=== PATIENT | male | born 1995 | race African-American/Black ===

== ENCOUNTER 2016-11-14 20:34 | Emergency (ER) | payer SELFPAY ==
--- NOTE | 2016-11-14 20:59 | ER Document Report ---
ED Medical Screen (RME) - General Stated Complaint: SKIN PROBLEM Notes: patient c/o bumps aroudn nose piercing and on his face that started today. denies pain, burning, itching I have greeted and performed a rapid initial assessment of this patient. A comprehensive ED assessment and evaluation of the patient, analysis of test results and completion of the medical decision making process will be conducted by additional ED providers. TRAVEL OUTSIDE OF THE [place] IN LAST 30 DAYS: No - Related Data Allergies/Adverse Reactions: No Known Allergies Allergy (Verified 11/14/16 20:57) Past Medical History - Immunizations Immunizations up to date: Yes Hx Diphtheria, Pertussis, Tetanus Vaccination: Yes
[2016-11-14 21:01] VITALS: BP 128/67
--- NOTE | 2016-11-14 22:33 | ER Document Report ---
HPI - HPI Patient complains to provider of: skin problem Pain Level: 0 Context: Patient is a 21-year-old male that comes emergency department for chief complaint of acne infection over his forehead and also an area that looks strange at the site of his nasal piercing. He has had the piercing in place for months. Asked patient admits that he did have an injury to the area where he caught his glasses on the piercing a couple of days ago. Patient denies fever, drainage from the area, pain to the area, patient denies any daily medications or medical problems. - DERM Skin Color: Normal Past Medical History - General Information source: Patient - Social History Smoking Status: Never Smoker Drug Abuse: None Lives with: Family Family History: Reviewed & Not Pertinent Patient has suicidal ideation: No Patient has homicidal ideation: No - Medical History Medical History: Negative Renal/ Medical History: Denies: Hx Peritoneal Dialysis Surgical Hx: Negative - Immunizations Immunizations up to date: Yes Hx Diphtheria, Pertussis, Tetanus Vaccination: Yes Vertical Provider Document - CONSTITUTIONAL General Appearance: WD/WN, No Apparent Distress - INFECTION CONTROL TRAVEL OUTSIDE OF THE [place] IN LAST 30 DAYS: No - HEENT HEENT: negative: Normal ENT Exam - Right outer aspect of the nare has a ring hole and very slight soft tissue swelling at the base. No erythema, abnormal heat, tenderness, or pus drainage., Pharyngeal Exudate, Pharyngeal Tenderness, Pharyngeal Erythema, Tympanic Membrane Red, Tympanic Membrane Bulging - NECK Neck: Normal Inspection - RESPIRATORY Respiratory: Breath Sounds Normal, No Respiratory Distress O2 Sat by Pulse Oximetry: 97 - CARDIOVASCULAR Cardiovascular: Regular Rate, Regular Rhythm - GI/ABDOMEN Gastrointestinal: Abdomen Soft, Abdomen Non-Tender - BACK Back: Normal Inspection - MUSCULOSKELETAL/EXTREMETIES Musculoskeletal/Extremeties: MAEW, FROM, Non-Tender - NEURO Level of Consciousness: Awake, Alert, Appropriate Motor/Sensory: No Motor Deficit, No Sensory Deficit - DERM Integumentary: negative: Rash - Papules with white over the forehead worse on the left side Course - Re-evaluation Re-evalutation: Patient did take on the ring for me, no pus or other abnormality seen, no erythema, very tiny amount of soft tissue swelling suggesting an injury, after I noted this patient admitted that he had caught his glasses on the ring and injured the area. Recommended patient remove the ring permanently to allow the area to heal, patient unwilling to do this. Patient requesting medication for the acne, patient does have a significant amount of acne over his face/forehead with whiteheads but no induration, fluctuance, or evidence of abscess. - Vital Signs Vital signs: Temp Pulse Resp BP Pulse Ox 98 F 79 15 128/67 H 97 11/14/16 20:57 11/14/16 20:57 11/14/16 20:57 11/14/16 20:57 11/14/16 20:57 Discharge - Discharge Clinical Impression: Acne vulgaris, Soft tissue injury Condition: Stable Disposition: HOME, SELF-CARE Additional Instructions: There appears to be a small amount of soft tissue swelling and injury side piercing, there is no evidence of infection, this should resolve/heal with time. Consider removing the piercing as this heals, however you would likely lose the pierced area. Take the doxycycline antibiotic for the acne outbreak, afterwards continue the new cream. Follow up with Primary care. Return to emergency department for any concerning symptoms. Prescriptions: Doxycycline Hyclate 100 mg PO BID #14 capsule
== END 2016-11-14 22:57 | disposition home or self-care (01) ==
LOC: ER 20:34
DX: S00.30XA Unspecified superficial injury of nose, initial encounter (principal); L70.0 Acne vulgaris; X58.XXXA Exposure to other specified factors, initial encounter
CPT/HCPCS: 99282

== ENCOUNTER 2016-12-19 13:28 | Emergency (ER) | payer SELFPAY ==
[2016-12-19 13:35] VITALS: BP 127/64
--- NOTE | 2016-12-19 14:17 | ER Document Report ---
ED Medical Screen (RME) - General Stated Complaint: HEADACHE Time seen by provider: 14:14 Mode of Arrival: Ambulatory Information source: Patient Notes: 21-year-old male presents to ED with right blister to the top inside lip for about a week and bottom inside lip started today, headache started this morning Became worse when he came to the ER, pain to the back of his neck when he moves his head that started yesterday. Denies fevers. Is eating Cheetos in the RME. I have greeted and performed a rapid initial assessment of this patient. A comprehensive ED assessment and evaluation of the patient, analysis of test results and completion of medical decision making process will be conducted by an additional ED providers. TRAVEL OUTSIDE OF THE [place] IN LAST 30 DAYS: No - Related Data Allergies/Adverse Reactions: No Known Allergies Allergy (Verified 12/19/16 14:13) Past Medical History Renal/ Medical History: Denies: Hx Peritoneal Dialysis - Immunizations Immunizations up to date: Yes Hx Diphtheria, Pertussis, Tetanus Vaccination: Yes Physical Exam - Vital signs Vitals: Temp Pulse Resp BP Pulse Ox 99.9 F 103 H 16 127/64 H 97 12/19/16 13:34 12/19/16 13:34 12/19/16 13:34 12/19/16 13:34 12/19/16 13:34 Course - Vital Signs Vital signs: Temp Pulse Resp BP Pulse Ox 99.9 F 103 H 16 127/64 H 97 12/19/16 13:34 12/19/16 13:34 12/19/16 13:34 12/19/16 13:34 12/19/16 13:34
[2016-12-19] MEDS ORDERED: LIDOCAINE 2% VISCOUS SOLN 20 ML UDCUP PO ONE (14:53)
[2016-12-19] MEDS ORDERED: IBUPROFEN 800 MG TABLET PO ONE (14:54)
[2016-12-19] MEDS ORDERED: ACYCLOVIR 200 MG CAPSULE PO ONE (14:58)
--- NOTE | 2016-12-19 15:04 | ER Document Report ---
HPI - HPI Patient complains to provider of: mouth sores Onset: Last week Onset/Duration: Gradual Quality of pain: Achy Pain Level: 3 Context: Patient complains of tender mouth ulceration that started about a week ago. Patient complains of generalized body aches and neck discomfort. Patient denies any fever. Patient does complain of mild headache. Patient denies any previous history of oral herpes. Associated Symptoms: Body/muscle aches, Headache, Other - Mouth sores. denies: Fever Exacerbated by: Denies Relieved by: Denies Similar symptoms previously: No Recently seen / treated by doctor: No - ROS ROS below otherwise negative: Yes Systems Reviewed and Negative: Yes All other systems reviewed and negative - CONSTITUTIONAL Constitutional: DENIES: Fever - EENT EENT: DENIES: Sore Throat Notes: Mouth ulceration - NEURO Neurology: REPORTS: Headache - RESPIRATORY Respiratory: DENIES: Trouble Breathing, Coughing - GASTROINTESTINAL Gastrointestinal: DENIES: Nausea, Patient vomiting, Diarrhea - MUSCULOSKELETAL Musculoskeletal: REPORTS: Neck Pain - Anterior lateral neck discomfort. DENIES : Extremity pain, Back Pain, Swelling - DERM Skin Color: Normal Skin Problems: Rash - Inside mouth Past Medical History - General Information source: Patient - Social History Smoking Status: Never Smoker Chew tobacco use (# tins/day): No Frequency of alcohol use: None Drug Abuse: None Family History: Reviewed & Not Pertinent Patient has suicidal ideation: No Patient has homicidal ideation: No - Medical History Medical History: Negative Renal/ Medical History: Denies: Hx Peritoneal Dialysis Past Surgical History: Reports: Hx Myringotomy - Immunizations Immunizations up to date: Yes Hx Diphtheria, Pertussis, Tetanus Vaccination: Yes Vertical Provider Document - CONSTITUTIONAL Agree With Documented VS: Yes Exam Limitations: No Limitations General Appearance: WD/WN, No Apparent Distress - INFECTION CONTROL TRAVEL OUTSIDE OF THE [place] IN LAST 30 DAYS: No - HEENT HEENT: Atraumatic, Normocephalic. negative: Normal ENT Exam, Pharyngeal Exudate , Pharyngeal Tenderness Mouth Diagram: 1 - Tender ulceration to lower lip, not visible with mouth closed 2 - Tender shallow ulceration to right upper buccal mucosa - NECK Neck: Normal Inspection, Supple. negative: Lymphadenopathy-Left, Lymphadenopathy-Right - RESPIRATORY Respiratory: Breath Sounds Normal, No Respiratory Distress O2 Sat by Pulse Oximetry: 97 - CARDIOVASCULAR Cardiovascular: Regular Rate, Regular Rhythm, No Murmur - BACK Back: Normal Inspection - MUSCULOSKELETAL/EXTREMETIES Musculoskeletal/Extremeties: MAEW - NEURO Level of Consciousness: Awake, Alert, Appropriate Motor/Sensory: No Motor Deficit - DERM Integumentary: Warm, Dry, Rash - Tender ulceration to the buccal mucosa of mouth Course - Vital Signs Vital signs: Temp Pulse Resp BP Pulse Ox 99.9 F 103 H 16 127/64 H 97 12/19/16 13:34 12/19/16 13:34 12/19/16 13:34 12/19/16 13:34 12/19/16 13:34 Discharge - Discharge Clinical Impression: Ulceration, oral mucosa Condition: Stable Disposition: HOME, SELF-CARE Instructions: Acyclovir ([facility]), Ibuprofen (General) ([facility]), Mouth Sores ([facility]) Additional Instructions: Return immediately for any new or worsening symptoms Followup with your primary care provider, call tomorrow to make a followup appointment You may use [id number] topical analgesic medications to treat your symptoms. Prescriptions: Acyclovir [Zovirax 200 mg Capsule] 400 mg PO Q4H #70 capsule Ibuprofen [Motrin 800 mg Tablet] 800 mg PO Q8H PRN #20 tab PRN Reason: Nystatin/Dexameth/Diphen [Magic Mouthwash ([facility] Formula) Susp] 5 ml PO QID PRN # 120 ml PRN Reason: Referrals: [facility] [Provider Group] - Follow up as needed [facility] [Provider Group] - Follow up as needed
== END 2016-12-19 15:20 | disposition home or self-care (01) ==
LOC: ER 13:28
DX: K12.1 Other forms of stomatitis (principal); K13.70 Unspecified lesions of oral mucosa; R52 Pain, unspecified; M54.2 Cervicalgia
CPT/HCPCS: 99283; J3490

== ENCOUNTER 2017-08-27 14:26 | Emergency (ER) | payer SELFPAY ==
--- NOTE | 2017-08-27 15:22 | ER Document Report ---
HPI - HPI Patient complains to provider of: sinus congestion Pain Level: 3 Context: Patient is a 22-year-old male who presents emergency department complaining of bilateral sinus congestion without fever, purulent drainage for approximately 2- 3 weeks. Patient states that he has been taking NyQuil at night only which helped him sleep. He also states he is taking Claritin-D twice with some improvement in his symptoms. Otherwise he denies any sore throat, ear pain, difficulty breathing, difficulty swallowing, chest pain, cough, nausea or vomiting, body aches. - CONSTITUTIONAL Constitutional: DENIES: Fever, Chills - EENT EENT: DENIES: Sore Throat, Ear Pain, Eye problems - NEURO Neurology: REPORTS: Headache. DENIES: Weakness, Vision blurred, Dizzinesss / Vertigo - CARDIOVASCULAR Cardiovascular: DENIES: Chest pain - RESPIRATORY Respiratory: DENIES: Trouble Breathing, Coughing - GASTROINTESTINAL Gastrointestinal: DENIES: Abdominal Pain, Black / Bloody Stools - URINARY Urinary: DENIES: Dysuria, Urgency, Frequency - MUSCULOSKELETAL Musculoskeletal: DENIES: Extremity pain Past Medical History - Social History Smoking Status: Never Smoker Chew tobacco use (# tins/day): No Frequency of alcohol use: Occasional Drug Abuse: None Family History: Reviewed & Not Pertinent Patient has suicidal ideation: No Patient has homicidal ideation: No Renal/ Medical History: Denies: Hx Peritoneal Dialysis Past Surgical History: Reports: Hx Myringotomy - Immunizations Immunizations up to date: Yes Hx Diphtheria, Pertussis, Tetanus Vaccination: Yes Vertical Provider Document - CONSTITUTIONAL Agree With Documented VS: Yes Notes: PHYSICAL EXAM GENERAL: Alert, interacts well. HEENT: NCAT, pale conjunctiva, extraocular movements intact, pupils PERRL. external ear normal, no evidence of external auditory canal tenderness, blood/ drainage, cerumen impaction, TM intact without evidence of effusion, bulging, injection, MMM NECK: Full range of motion. Supple. Trachea midline. LUNGS: Clear to auscultation bilaterally, no wheezes, rales, or rhonchi. No respiratory distress. HEART: Regular rate and rhythm. No murmurs, gallops, or rubs. EXTREMITIES: Moves all 4 extremities spontaneously. No edema, radial and dorsalis pedis pulses 2/4 bilaterally. No cyanosis. NEUROLOGICAL: Alert and oriented x4. Normal speech. PSYCH: Normal affect, normal mood. SKIN: Warm, dry, normal turgor. No rashes or lesions noted. - INFECTION CONTROL TRAVEL OUTSIDE OF THE [place] IN LAST 30 DAYS: No - RESPIRATORY O2 Sat by Pulse Oximetry: 96 Course - Re-evaluation Re-evalutation: 08/27/17 15:20 Patient is a 22-year-old male who presents emergency department with symptoms consistent with allergic rhinitis. No evidence of fever, purulent drainage, sinus tenderness concerning for sinusitis. Patient is otherwise hemodynamically stable in no acute distress and afebrile. Will discharge patient home on steroid pack and to continue taking Claritin-D and to follow-up with primary care. Patient agrees with plan and stable for discharge home - Vital Signs Vital signs: Temp Pulse Resp BP Pulse Ox 97.4 F 80 16 111/67 96 08/27/17 14:29 08/27/17 14:29 08/27/17 14:29 08/27/17 14:29 08/27/17 14:29 Discharge - Discharge Clinical Impression: Allergic rhinitis Qualifiers: Chronicity: unspecified Allergic rhinitis trigger: unspecified Allergic rhinitis seasonality: unspecified seasonality Qualified Code(s): J30.9 - Allergic rhinitis, unspecified Condition: Good Disposition: HOME, SELF-CARE Instructions: Use of Diphenhydramine, Hay Fever ([facility]), Headache ([facility]), Nasal Corticosteroid Inhaler ([facility]), OTC Antihistamines ([facility]) Additional Instructions: Continue taking Claritin-D once a day. You can also take as needed pseudoephedrine as a decongestant. Prescriptions: Methylprednisolone [Medrol Dosepack (4 mg/Tab) 21 Tab/Dosepak] 4 mg PO ASDIR PRN #21 tab.ds.pk PRN Reason:
[2017-08-27] MEDS ORDERED: IBUPROFEN 800 MG TABLET PO ONE (15:23)
[2017-08-27] MEDS ORDERED: PSEUDOEPHEDRINE HCL 30 MG TABLET PO ONE (15:23)
[2017-08-27 15:56] VITALS: BP 109/66
== END 2017-08-27 16:05 | disposition home or self-care (01) ==
LOC: ER 14:26
DX: J30.9 Allergic rhinitis, unspecified (principal)
CPT/HCPCS: 99283

== ENCOUNTER 2018-05-20 22:45 | Emergency (ER) | payer SELFPAY ==
--- NOTE | 2018-05-21 00:36 | ER Document Report ---
ED General - General Chief Complaint: Skin Problem Stated Complaint: RASH ON CHEST Time Seen by Provider: 05/21/18 00:25 Notes: Patient is a 22-year-old male presents with complaint of a rash that he has had for several months. He says that he is hooked up he thinks it is) migraines. It is always along his inferior pectoral line as well as over his upper neck. Denies any fevers. No systemic symptoms. No abdominal pain. No chest pain. No shortness of breath. No history of diabetes. No vomiting or diarrhea. No other complaints at this time. TRAVEL OUTSIDE OF THE [place] IN LAST 30 DAYS: No - Related Data Allergies/Adverse Reactions: No Known Allergies Allergy (Verified 12/19/16 14:13) Past Medical History - Social History Smoking Status: Never Smoker Frequency of alcohol use: None Drug Abuse: None Family History: Reviewed & Not Pertinent Renal/ Medical History: Denies: Hx Peritoneal Dialysis Past Surgical History: Reports: Hx Myringotomy - Immunizations Immunizations up to date: Yes Hx Diphtheria, Pertussis, Tetanus Vaccination: Yes Review of Systems - Review of Systems Notes: My Normal Review Basic REVIEW OF SYSTEMS: CONSTITUTIONAL : Denies fever, chills, or sweats. Denies recent illness. EENT: Denies eye, ear, throat, or mouth pain or symptoms. Denies nasal or sinus congestion. RESPIRATORY: Denies cough, cold, or chest congestion. Denies shortness of breath, difficulty breathing, or wheezing. GASTROINTESTINAL: Denies abdominal pain. Denies nausea, vomiting, or diarrhea. Denies constipation. Last BM: MUSCULOSKELETAL: Denies neck or back pain or joint pain or swelling. SKIN: Rash NEUROLOGICAL: Denies altered mental status or loss of consciousness. Denies headache. Denies weakness or paralysis or loss of use of either side. Denies problems with gait or speech. Denies sensory or motor loss. ALL OTHER SYSTEMS REVIEWED AND NEGATIVE. Physical Exam - Vital signs Vitals: Temp Pulse BP Pulse Ox 98.2 F 92 126/72 H 98 05/20/18 22:52 05/20/18 22:52 05/20/18 22:52 05/20/18 22:52 - Notes Notes: General Appearance: Well nourished, alert, cooperative, no acute distress, no obvious discomfort. Appearing. Vitals: reviewed, See vital signs table. Eyes: PERRL, EOMI, Conjuctiva clear Neck: Supple, no neck tenderness, Lungs: No wheezing, No rales, No rhonci, No accessory muscle use, good air exchange bilaterally. Heart: Normal rate, Regular rythm, No murmur, no rub Extremities: no edema. Patient spontaneously moving all extremities without any pain. Skin: increased darker skin pigmentation along the inferior border of the pectoralis muscles as well as over the back of his neck. It is consistent with what appears to be acanthosis nigricans. Neuro: speech clear, oriented x 3, normal affect, responds appropriately to questions. Course - Re-evaluation Re-evalutation: 05/21/18 05:01 Patient's rashes look consistent with acanthosis nigricans. Encourage him to lose weight this is sometimes helps with the rash. On talked about diet options and exercise. Encouraged him to return to the ER for spreading of the rash, fevers, or feels unwell. Patient's blood sugar is normal this is even after he just ate approximately 3-4 hours ago. Dictation of this chart was performed using voice recognition software; therefore, there may be some unintended grammatical errors. - Vital Signs Vital signs: Temp Pulse Resp BP Pulse Ox 97.9 F 89 16 122/59 L 100 05/21/18 01:26 05/21/18 01:26 05/21/18 01:26 05/21/18 01:26 05/21/18 01:26 Discharge - Discharge Clinical Impression: Rash Condition: Good Disposition: HOME, SELF-CARE Additional Instructions: I suspect your rash is Acanthosis Nigrans. This usually improves with weight loss. Please follow up with a terra cotta mold maker if the rash is not improving despite weight loss. please return to the ER immediately if you develop fevers, vomiting, abdominal pain, or worsening of the rash.
[2018-05-21 01:47] VITALS: BP 122/59
== END 2018-05-21 01:30 | disposition home or self-care (01) ==
LOC: ER 22:45
DX: R21 Rash and other nonspecific skin eruption (principal)
CPT/HCPCS: 82962; 99283

== ENCOUNTER 2020-03-02 10:42 | Emergency (ER) | payer SELFPAY ==
--- NOTE | 2020-03-02 13:26 | RADIOLOGY REPORT (SQ) ---
EXAM DESCRIPTION: CHEST SINGLE VIEW IMAGES COMPLETED DATE/TIME: 03/02/2020 1:01 pm REASON FOR STUDY: loss of smell, loss of taste, high risk covid COMPARISON: None. EXAM PARAMETERS: NUMBER OF VIEWS: One view. TECHNIQUE: Single frontal radiographic view of the chest acquired. RADIATION DOSE: NA LIMITATIONS: None. FINDINGS: LUNGS AND PLEURA: No opacities, masses or pneumothorax. No pleural effusion. MEDIASTINUM AND HILAR STRUCTURES: No masses. Contour normal. HEART AND VASCULAR STRUCTURES: Heart normal in size. Normal vasculature. BONES: No acute findings. HARDWARE: None in the chest. OTHER: No other significant finding. IMPRESSION: NO ACUTE RADIOGRAPHIC FINDING IN THE CHEST. TECHNICAL DOCUMENTATION: JOB ID: [id number] 2010 [employer] All Rights Reserved Reading location - IP/workstation name: [email or web address]
[2020-03-02 14:09] LABS: A TYPE INFLUENZA AG NEGATIVE (NEGATIVE); B INFLUENZA AG NEGATIVE (NEGATIVE)
[2020-03-02 14:56] VITALS: BP 123/74
--- NOTE | 2020-03-02 15:05 | ER Document Report ---
HPI - HPI Time Seen by Provider: 03/02/20 12:06 Pain Level: Denies Notes: 24-year-old male presents to the emergency room for evaluation of ageusia and anosmia that started 3 days ago after recently flying to [place] to visit family and flying back. Denies any nasal congestion, sore throat, headache, chest pain, shortness of breath, nausea, vomiting, diarrhea, shortness of breath, rashes, dyspnea, numbness or tingling down arms or legs, dysuria, lower back pain, abdominal pain, etc. No [id number] medications have been tried. Eating and drinking without any issues. Patient was concerned about COVID. Denies fevers, chills, chest pain,palpitations, shortness of breath, dyspnea, nausea, vomiting, diarrhea, abdominal pain, hematuria,blurred vision, double vision, loss of vision, speech changes, LH, dizziness, syncope, headaches, wheezing, ST, URI, neck pain, weakness, bowel or bladder dysfunction, saddle anesthesia, numbness or tingling in bilateral upper or lower extremities equally, muscle paralysis, weakness in bilateral upper or lower extremities equally or rash. Denies IV drug use. MEDICATIONS: I agree with the patient medications as charted by the RN. ALLERGIES: I agree with the allergies as charted by the RN. PAST MEDICAL HISTORY/PAST SURGICAL HISTORY: Reviewed and agree as charted by RN. SOCIAL HISTORY: Reviewed and agree as charted by RN. FAMILY HISTORY: No significant familial comorbid conditions directly related to patient complaint EXAM: Reviewed vital signs as charted by RN. REVIEW OF SYSTEMS:reviewed vital signs by RN CONSTITUTIONAL : Denies fever, chills, or sweats. Denies recent illness. EENT: Denies eye, ear, throat, or mouth pain or symptoms. Denies nasal or sinus congestion or discharge. Denies throat, tongue, or mouth swelling or difficulty swallowing. CARDIOVASCULAR: Denies chest pain. Denies palpitations or racing or irregular heart beat. Denies ankle edema. RESPIRATORY: Denies cough, cold, or chest congestion. Denies shortness of breath, difficulty breathing, or wheezing. GASTROINTESTINAL: Denies abdominal pain or distention. Denies nausea, vomiting, or diarrhea. Denies blood in vomitus, stools, or per rectum. Denies black, tarry stools. Denies constipation. GENITOURINARY: Denies difficulty urinating, painful urination, burning, frequency, blood in urine, or discharge. MUSCULOSKELETAL: Denies back or neck pain or stiffness. Denies joint pain or swelling. SKIN: Denies rash, lesions or sores. HEMATOLOGIC : Denies easy bruising or bleeding. LYMPHATIC: Denies swollen, enlarged glands. NEUROLOGICAL: Denies confusion or altered mental status. Denies passing out or loss of consciousness. Denies dizziness or lightheadedness. Denies headache. Denies weakness or paralysis or loss of use of either side. Denies problems with gait or speech. Denies sensory loss, numbness, or tingling. Denies seizures. PSYCHIATRIC: Denies anxiety or stress. Denies depression, suicidal ideation, or homicidal ideation. ALL OTHER SYSTEMS REVIEWED AND NEGATIVE. Dictation was performed using [employer] voice recognition software PHYSICAL EXAMINATION: GENERAL: Well-appearing, well-nourished and in no acute distress. HEAD: Atraumatic, normocephalic. EYES: Pupils equal round and reactive to light, extraocular movements intact, sclera anicteric, conjunctiva are normal. ENT: Nares patent, oropharynx clear without exudates. Moist mucous membranes. NECK: Normal range of motion, supple without lymphadenopathy LUNGS: Breath sounds clear to auscultation bilaterally and equal. No wheezes rales or rhonchi. HEART: Regular rate and rhythm without murmurs ABDOMEN: Soft, nontender, nondistended abdomen. No guarding, no rebound. No masses appreciated. Musculoskeletal: Normal range of motion, no pitting or edema. No cyanosis. NEUROLOGICAL: Cranial nerves grossly intact. Normal speech, normal gait. Normal sensory, motor exams PSYCH: Normal mood, normal affect. SKIN: Warm, Dry, normal turgor, no rashes or lesions noted. Patient is a [] that presents to the emergency department for chief complaint of []. []. ROS: Other than noted above, the 12 point review of systems was reviewed with the patient and were negative, all pertinent findings are included in the HPI. PHYSICAL EXAMINATION: Vital signs reviewed. GENERAL: Well-appearing, well-nourished and in no acute distress. HEAD: Atraumatic, normocephalic. NECK: Normal range of motion CV: Heart regular rate and rhythm LUNGS: No respiratory distress ABD: generalized abd pain Musculoskeletal: Normal range of motion NEUROLOGICAL: Normal speech PSYCH: Normal mood, normal affect. MDM: Patient seen and examined for rapid initial assessment. Vital signs reviewed. A comprehensive ED assessment and evaluation of the patient, analysis of test results and completion of the medical decision making process will be conducted by additional ED providers. *Note is created using voice recognition software and may contain spelling, syntax or grammatical errors. Past Medical History - General Information source: Patient - Social History Smoking Status: Never Smoker Chew tobacco use (# tins/day): No Frequency of alcohol use: Occasional Drug Abuse: None Family History: Reviewed & Not Pertinent Patient has homicidal ideation: No Renal/ Medical History: Denies: Hx Peritoneal Dialysis Past Surgical History: Reports: Hx Myringotomy - Immunizations Immunizations up to date: Yes Hx Diphtheria, Pertussis, Tetanus Vaccination: Yes Vertical Provider Document - CONSTITUTIONAL Agree With Documented VS: Yes Exam Limitations: No Limitations General Appearance: WD/WN - INFECTION CONTROL TRAVEL OUTSIDE OF THE [place] IN LAST 30 DAYS: No Course - Re-evaluation Re-evalutation: 03/02/20 17:21 Afebrile vital stable no distress. The patient was evaluated during the global COVID-19 pandemic, and that diagnosis was suspected/considered upon their initial presentation. Their evaluation, treatment and testing was consistent with current guidelines for patients who present with complaints or symptoms that may be related to COVID-19. Patient will be tested for the covered virus before is discharged. flu and strep were negative, the chest x-ray was clear, negative for pneumonia, pneumothorax, tension, etc Rapid flu, rapid strep, chest x-ray all negative. Outpatient COVID testing initiated. Discussed with patient that he does need to self quarantine until COVID results come back, social distance as well as wearing mask when he is at home for many family members. After performing a Medical Screening Examination, I estimate there is LOW risk for RUPTURED ESOPHAGUS, PNEUMOTHORAX, PULMONARY EMBOLISM, ACUTE CORONARY SYNDROME, OR THORACIC AORTIC DISSECTION, thus I consider the discharge disposition reasonable. I have reevaluated this patient multiple times and no significant life threatening changes are noted. The patient and I have discussed the diagnosis and risks, and we agree with discharging home with close follow- up. We also discussed returning to the Emergency Department immediately if new or worsening symptoms occur. We have discussed the symptoms which are most concerning (e.g., bloody sputum, worsening pain or shortness of breath) that necessitate immediate return. - Vital Signs Vital signs: Temp Pulse Resp BP Pulse Ox 98.4 F 77 18 133/73 H 99 03/02/20 11:53 03/02/20 10:52 03/02/20 10:52 03/02/20 10:52 03/02/20 10:52 Discharge - Discharge Clinical Impression: Exposure to 2019 novel coronavirus Condition: Stable Disposition: HOME, SELF-CARE Additional Instructions: You have been evaluated for complaints or symptoms which could reflect infection with coronavirus/Covid-19 disease. given the prevalence of the disease in this community you should assume you are infected. You were tested today for COVID, please quarantine until you receive the status of your COVID result ple ase stay at home with minimal interaction to others, wash your hands, practice social distancing while at home, and remained at home without any travel outside of the home for: 1. At least 3 days (72 hours) have passed since recovery defined as resolution of fever without the use of fever-reducing medications and improvement in respiratory symptoms (e.g., cough, shortness of breath) AND 2. At least 7 days have passed since symptoms first appeared. Return immediately for any new or worsening symptoms. Follow up with primary care provider, call tomorrow to make followup appointment. Forms: Return to Work Referrals: CARLEY BOYD MD [COMMUNITY BASED STAFF] - Follow up as needed
== END 2020-03-02 14:56 | disposition home or self-care (01) ==
LOC: ER 10:42
DX: U07.1 COVID-19 (principal); R43.2 Parageusia; R43.0 Anosmia
CPT/HCPCS: 99283; 87070; 87880; 87635; 87077; 87804; 71045; C9803

== ENCOUNTER 2020-06-12 10:13 | Emergency (ER) | payer SELFPAY ==
[2020-06-12 10:18] VITALS: BP 149/76
--- NOTE | 2020-06-12 10:38 | ER Document Report ---
ED Skin Rash/Insect Bite/Abscs - General Chief Complaint: Abscess Stated Complaint: ABSCESS Time Seen by Provider: 06/12/20 10:27 Primary Care Provider: [facility] [Provider Group] - Follow up as needed [facility] [Provider Group] - Follow up as needed Mode of Arrival: Ambulatory Information source: Patient Notes: 24-year-old male presented to ED for complaint of folliculitis to the hair follicles in his groin area. He states is been going on for about a week. He states he is noticed some bloody clear drainage. He does have 2 areas. I have given him instructions on cleaning the area rinse and well applying bacitracin and I have given him a prescription for doxycycline. He has been given precautions for sunburn with doxycycline. He is alert oriented respirations regular nonlabored speaking in full sentences walks with even steady gait. REVIEW OF SYSTEMS: CONSTITUTIONAL : Denies fever, chills, or sweats. Denies recent illness. EENT: Denies eye, ear, throat, or mouth pain or symptoms. Denies nasal or sinus congestion. CARDIOVASCULAR: Denies chest pain. RESPIRATORY: Denies cough, cold, or chest congestion. Denies shortness of breath, difficulty breathing, or wheezing. MUSCULOSKELETAL: Denies neck or back pain or joint pain or swelling. SKIN: Folliculitis to the hairs to his groin HEMATOLOGIC : Denies easy bruising or bleeding. LYMPHATIC: Denies swollen, enlarged glands. NEUROLOGICAL: Denies altered mental status or loss of consciousness. Denies headache. Denies weakness or paralysis or loss of use of either side. Denies problems with gait or speech. Denies sensory or motor loss. PSYCHIATRIC: Denies anxiety or stress or depression. ALL OTHER SYSTEMS REVIEWED AND NEGATIVE. PHYSICAL EXAMINATION: GENERAL: Well-appearing, well-nourished and in no acute distress. HEAD: Atraumatic, normocephalic. EYES: Pupils equal round extraocular movements intact, conjunctiva are normal. ENT: Nares patent NECK: Normal range of motion LUNGS: No respiratory distress Musculoskeletal: Normal range of motion NEUROLOGICAL: Normal speech, normal gait. PSYCH: Normal mood, normal affect. SKIN: Folliculitis to the mons pubis clear bloody drainage TRAVEL OUTSIDE OF THE [place] IN LAST 30 DAYS: No - HPI Patient complains to provider of: Tender/swollen area Onset: Last week Onset/Duration: Gradual, Intermittent Quality of pain: Sharp Severity: Moderate Pain Level: 1 Quality of rash: Painful Identify cause: Yes Exacerbated by: Denies Relieved by: Denies Similar symptoms previously: Yes Recently seen / treated by doctor: Yes - Related Data Allergies/Adverse Reactions: No Known Allergies Allergy (Verified 12/19/16 14:13) Past Medical History - General Information source: Patient - Social History Smoking Status: Never Smoker Frequency of alcohol use: Rare Drug Abuse: None Lives with: Alone Family History: Reviewed & Not Pertinent Patient has suicidal ideation: No Patient has homicidal ideation: No - Past Medical History Cardiac Medical History: Reports: None Pulmonary Medical History: Reports: None EENT Medical History: Reports: None Neurological Medical History: Reports: None Endocrine Medical History: Reports: None Renal/ Medical History: Reports: None Malignancy Medical History: Reports None GI Medical History: Reports: None Musculoskeletal Medical History: Reports None Skin Medical History: Reports None Psychiatric Medical History: Reports: None Traumatic Medical History: Reports: None Infectious Medical History: Reports: None Past Surgical History: Reports: Hx Myringotomy - Immunizations Immunizations up to date: Yes Hx Diphtheria, Pertussis, Tetanus Vaccination: Yes Physical Exam - Vital signs Vitals: Temp Pulse Resp BP Pulse Ox 98.2 F 76 18 149/76 H 95 06/12/20 10:06/12/20 10:06/12/20 10:06/12/20 10:06/12/20 10:17 Course - Vital Signs Vital signs: Temp Pulse Resp BP Pulse Ox 98.2 F 76 18 149/76 H 95 06/12/20 10:06/12/20 10:06/12/20 10:06/12/20 10:06/12/20 10:17 Discharge - Discharge Clinical Impression: Folliculitis Condition: Stable Disposition: HOME, SELF-CARE Additional Instructions: Folliculitis You have a skin infection called folliculitis. This occurs when bacteria infect the hair follicles of the skin. Typically, redness and small pustules are found where hair shafts enter the skin. Allergy, surface irritation, shaving, and exposure to hot tubs predispose to folliculitis. The usual treatment is antibiotic ointment, sometimes combined with cortisone-type medication. Warm compresses are often used. If the infection has moved deeper into the skin, oral antibiotics may be necessary. To avoid future episodes of folliculitis, you must identify (if possible) the factors which allowed this infection to start. If you develop increasing pain, swelling, fever, or red streaks, call the doctor or return for re-evaluation. Soap Cleansing Gently wash the wound daily using a mild soap (like Ivory, Phisoderm, Neutrogena). Use warm water, rubbing gently until all debris, ooze, and crusting have been washed from the wound. Allow to dry briefly (about 10 minutes) after cleaning. Repeat this cleansing at least three times a day for the first two days and then once or twice a day. Doxycycline Doxycycline (Vibramycin, Doryx) is an antibiotic of the tetracycline family. This type of drug is useful for infections of the respiratory tract and genital tract, and is sometimes used for intestinal infections. Unlike most tetracyclines, doxycycline can be taken with food. It is longer acting, and (usually) less prone to side effects than regular tetracycline. Tetracycline antibiotics can stain immature teeth and SHOULD NOT BE TAKEN BY CHILDREN, NURSING MOTHERS, OR WOMEN. Tetracyclines can make you more prone to sunburn. Abdominal cramping, nausea, and diarrhea are occasional side effects. Women may experience vaginal yeast infections. Call the doctor at once if you develop hives, itching, shortness of breath, or lightheadedness. FOLLOW-UP CARE: If you have been referred to a physician for follow-up care, call the physicians office for an appointment as you were instructed or within the next two days. If you experience worsening or a significant change in your symptoms, notify the physician immediately or return to the Emergency Department at any time for re-evaluation. Prescriptions: Doxycycline Monohydrate 100 mg PO BID #20 capsule Forms: Elevated Blood Pressure Referrals: [facility] [Provider Group] - Follow up as needed [facility] [Provider Group] - Follow up as needed
== END 2020-06-12 10:41 | disposition home or self-care (01) ==
LOC: ER 10:13
DX: L73.9 Follicular disorder, unspecified (principal)
CPT/HCPCS: 99283